=== PATIENT | female | born 1950 | race Caucasian/White ===

== ENCOUNTER 2016-10-01 05:49 | Outpatient (CLI) | payer BC ==
[~2016-10-01] VITALS: Ht 172.7 cm; Wt 53.8 kg
[~2016-10-01 05:49] MED LIST: LVT.025T; LVT.05T; prempro
[2016-10-01] MEDS ORDERED: BUDE3CAP15 PO (12:42)
[2016-10-01] MEDS ORDERED: PREMPRO TOP (12:42)
[2016-10-01] MEDS ORDERED: LEVO100T7 PO (12:42)
== END 2016-10-01 12:47 ==
LOC: PREOP 05:49
PROVIDERS: ATTEND Surgery
DX: Z01.818 Encounter for other preprocedural examination (principal); Z12.11 Encounter for screening for malignant neoplasm of colon

== ENCOUNTER 2016-10-06 08:15 | Day surgery (SDC) | payer BC ==
[~2016-10-06] VITALS: Ht 172.7 cm; Wt 53.8 kg
[~2016-10-06 08:15] MED LIST changes: +BUDE3CAP15 PO; +LEVO100T7 PO; +PREMPRO TOP
[2016-10-06] MEDS ORDERED: FLUMAZENIL (ROMAZICON) 0.1 MG/ML 5 ML VIAL INJ PRN (08:30)
[2016-10-06] MEDS ORDERED: NALOXONE 0.4 MG/ML 1 ML (NARCAN) VIAL IVP PRN (08:30)
[2016-10-06] MEDS ORDERED: NS IV 1000 ML 1,000 ML IV ONE (08:30)
[2016-10-06 08:45] VITALS: BP 147/91
[2016-10-06] MEDS ORDERED: proPOfol 200 MG/20 ML (DIPRIVAN) VIAL IV ONE (09:00)
[2016-10-06] MEDS ORDERED: fentaNYL INJECTION 100 MCG/2 ML AMP ONE (09:00)
--- NOTE | 2016-10-06 09:50 | Discharge Inst-Simple/Standard ---
Discharge Inst-Standard Patient Instructions/Follow Up Plan of Care/Instructions/FU: Follow Up Dr. Colon as directed. Next colonoscopy in 10 years or sooner if changes to current condition Activity as Tolerated: Yes Discharge Diet: No Restrictions SABRINA WYATT APRN Oct 06, 2016 09:50
--- NOTE | 2016-10-06 09:54 | Progress Note-Post Operative ---
Post-Operative Progess Note Surgeon (s)/Used Car Lot Attendant (s) Surgeon LIZZ SOLORZANO DO Used Car Lot Attendant: na Pre-Operative Diagnosis screening colonoscopy Post-Operative Diagnosis normal colon Procedure & Operative Findings Date of Procedure 10/06/16 Procedure Performed/Findings colonoscopy Anesthesia [facility] Estimated Blood Loss Estimated blood loss (mL): none Specimens/Packing Specimens Removed na LIZZ SOLORZANO DO Oct 06, 2016 9:53 am
[2016-10-06 09:55] VITALS: BP 98/64
[2016-10-06 10:25] VITALS: BP 102/70
--- NOTE | 2016-10-06 10:32 | OPERATIVE REPORT ---
DATE OF SERVICE: 10/06/2016 PREOPERATIVE DIAGNOSIS: Screening colonoscopy. POSTOPERATIVE DIAGNOSIS: Normal colon. PROCEDURE: Colonoscopy. SURGEON: Darlene ANESTHESIA: Per MDA. ESTIMATED BLOOD LOSS: None. COMPLICATIONS: None. INDICATIONS: The patient is a 66-year-old female due for a screening colonoscopy. Her last colonoscopy was 10 years ago. She understands risks and benefits of procedure and wished to proceed with procedure. Consent was signed and in the chart. PROCEDURE: The patient was taken to the endoscopy suite, placed in left lateral recumbent position. Timeout was performed. Digital rectal exam was performed. There were no palpable polyps, masses or ulcerations. Scope was inserted in the rectum and advanced all the way to the cecum with minimal difficulty. Prep was adequate. Scope was slowly retracted back. There were no polyps, masses or ulcerations in the cecum, ascending, transverse, descending and sigmoid colon. In the rectum, the scope was also retroflexed, noting no other pathology. Scope was returned to its normal position, slowly withdrawn until completely removed, noting no other pathology. The patient tolerated the procedure well without any complications. She was taken to the recovery room in stable condition. RECOMMENDATIONS: The patient will need repeat colonoscopy in 10 years. If she has any problems prior to that, she should be reevaluated at that time. Job ID: [id number] DocumentID: [id number] Dictated Date: 10/06/2016 09:49:20 Optical Glass Wet Inspector Date: 10/06/2016 10:32:10 Dictated By: LIZZ SOLORZANO DO
[2016-10-06 11:00] VITALS: BP 102/70
== END 2016-10-06 11:00 | disposition home or self-care (01) ==
LOC: ENDO 08:15
PROVIDERS: ATTEND Surgery
DX: Z12.11 Encounter for screening for malignant neoplasm of colon (principal)

== ENCOUNTER → 2017-09-16 | Outpatient (CLI) | payer MEDICARE, OTHER ==
--- NOTE | 2017-09-16 15:54 | Diagnostic Imaging Report ---
INDICATION: Arthritis. TIME OF EXAMINATION: 03:07 p.m. FINDINGS: Carpi are unremarkable bilaterally. MCP joints are unremarkable. There are some mild degenerative changes of interphalangeal joints. However, no definite osseous erosions are seen. No soft tissue calcifications are seen. IMPRESSION: Essentially unremarkable bilateral hand radiographs. No acute features seen. No definite osseous erosive changes are identified. Dictated by: Dictated on workstation # [id number]
== END ==
LOC: RAD 14:21
PROVIDERS: ATTEND Internal Medicine
DX: M19.049 Primary osteoarthritis, unspecified hand (principal)

== ENCOUNTER → 2018-04-12 | Outpatient (CLI) | payer MEDICARE, OTHER ==
--- NOTE | 2018-04-12 14:03 | Diagnostic Imaging Report ---
INDICATION: Routine screening. COMPARISON: 07/15/2015 and 11/13/2013. TECHNIQUE: 2D and 3D bilateral screening mammography was performed with CAD. FINDINGS: Both breasts are heterogeneously dense, limiting the sensitivity of mammography. The parenchymal pattern is stable. Calcifications in the lower inner right breast appear stable. No mass or malignant appearing microcalcifications are seen. The axillae are unremarkable. IMPRESSION: No mammographic features suspicious for malignancy are identified. ACR BI-RADS Category 2: Benign findings. Result letter will be mailed to the patient. Note: At least 10% of breast cancer is not imaged by mammography. Dictated by: Dictated on workstation # [id number]
== END ==
LOC: RAD 09:55
PROVIDERS: ATTEND Nurse Practitioner
DX: Z12.31 Encounter for screening mammogram for malignant neoplasm of breast (principal)
CPT/HCPCS: 77067

== ENCOUNTER → 2018-09-21 | Outpatient (CLI) | payer MEDICARE, OTHER ==
--- NOTE | 2018-09-21 20:18 | Diagnostic Imaging Report ---
INDICATION: Palpable lump right breast. Correlation is made with prior exam from 04/12/2018 and 07/15/2015. Unilateral right 2-D and 3-D diagnostic mammography was performed with a Computer Aided Detection (CAD) system. BB marker was placed at the area of palpable abnormality in the lower-inner right breast. FINDINGS: Right breast is heterogeneously dense. There is an area of density in the medial and inferior aspect of the right breast at the area of palpable abnormality, indeterminate. There are some benign calcifications. No other suspicious abnormality is seen. Right axilla is unremarkable. IMPRESSION: There is some increased density at the area of palpable abnormality. Further evaluation with ultrasound is recommended and will be performed today. ACR BI-RADS Category 0: Incomplete. (Needs additional imaging evaluation). Result letter will be mailed to the patient. Note: At least 10% of breast cancer is not imaged by mammography. Dictated by: Dictated on workstation # [id number]
--- NOTE | 2018-09-21 20:29 | Diagnostic Imaging Report ---
INDICATION: Palpable lump in the right breast. FINDINGS: Sonographic interrogation of the area of lump in the right breast was performed. This corresponds to approximately 3:30 location 2 cm from the nipple. There is an area of hypoechogenicity at this location measuring 6 mm x 3 mm x 6 mm. This is near the chest wall. No internal vascularity is seen. There does appear to be some posterior acoustic enhancement on several images. Therefore, this may be cystic. No other abnormalities are detected. IMPRESSION: Subcentimeter region of hypoechogenicity at 3:30 location in the right breast corresponding to the palpable abnormality. This is indeterminate but may be cystic. Short-interval sonographic follow-up is recommended with repeat study in three months to confirm stability. ACR BI-RADS Category 3: Probably benign findings. Dictated by: Dictated on workstation # [id number]
== END ==
LOC: RAD 12:33
PROVIDERS: ATTEND Obstetrics & Gynecology
DX: N63.14 Unspecified lump in the right breast, lower inner quadrant (principal)

== ENCOUNTER → 2018-12-22 | Outpatient (CLI) | payer MEDICARE, OTHER ==
--- NOTE | 2018-12-22 21:04 | Diagnostic Imaging Report ---
INDICATION: Right breast lump. EXAMINATION: Ultrasound of the right breast, limited. FINDINGS: The previous diagnostic mammogram and ultrasound exam of the right breast performed on 09/21/2018 noted a subcentimeter hypoechoic area in the 3 o'clock position of the right breast. On this exam, that finding is again evident and does not seem to have changed significantly. This could indeed be cystic in nature as there is no internal vascularity in this area. However in the tissues adjacent to this hypoechoic area there does seem to be increased vascularity. This region measures 9 x 17 MM. I am not certain if this is a solid neoplastic lesion with a necrotic center but that possibly should be considered. I do feel it would be beneficial to obtain a tissue diagnosis of this area and I would recommend that ultrasound-guided biopsy be performed to exclude malignancy. IMPRESSION: 1. The area of mixed echogenicity in the region of patient's palpable abnormality is technically indeterminate. An ultrasound-guided biopsy would be recommended to exclude malignancy. 2. These results were discussed with Dr. Susan Metzger. ACR BI-RADS Category 4: Suspicious abnormality. Result letter will be mailed to the patient. Note: At least 10% of breast cancer is not imaged by mammography. Report was faxed to the office of Dr. Metzger. Dictated by: Dictated on workstation # [id number]
== END ==
LOC: RAD 09:51
PROVIDERS: ATTEND Obstetrics & Gynecology
DX: N63.14 Unspecified lump in the right breast, lower inner quadrant (principal)

== ENCOUNTER → 2019-11-08 | Outpatient (CLI) | payer MEDICARE, OTHER ==
[~2019-11-08] MED LIST changes: -BUDE3CAP15 PO; +NF-BUDE3C PO
--- NOTE | 2019-11-08 15:10 | Diagnostic Imaging Report ---
INDICATION: Capsule endoscopy. Study was performed to evaluate for retained capsule. TIME OF EXAM: 1:42 PM. FINDINGS: There are surgical clips in the right upper quadrant. There is a clip in the low right paramidline pelvis. No definite opacity is seen to suggest a retained capsule from capsule endoscopy. Bowel gas pattern is unremarkable. There is no bowel structure or free air. No pathologic calcifications are identified. IMPRESSION: No definite evidence of retained capsule endoscopy foreign body. Dictated by: Dictated on workstation # [id number]
== END ==
LOC: RAD 13:15
PROVIDERS: ATTEND Internal Medicine
DX: Z18.89 Other specified retained foreign body fragments (principal); Z98.890 Other specified postprocedural states
CPT/HCPCS: 74018

== ENCOUNTER 2019-11-20 09:46 | Outpatient (CLI) | payer MEDICARE, OTHER ==
[2019-11-20 10:10] VITALS: BP 134/63
[2019-11-20] MEDS ORDERED: ZOLEDRONATE (RECLAST) 5 MG/100 ML IV ONE (10:45)
== END 2019-11-20 11:25 | disposition home or self-care (01) ==
LOC: SDC 09:46
PROVIDERS: ATTEND Internal Medicine
DX: M81.0 Age-related osteoporosis without current pathological fracture (principal)
CPT/HCPCS: 96365